=== PATIENT | male | born 1970 | race Caucasian/White ===

== ENCOUNTER 2017-06-25 07:05 | Day surgery (SDC) | payer OTHER ==
[~2017-06-25] VITALS: Ht 162.6 cm; Wt 97.5 kg
[~2017-06-25 07:05] MED LIST: PRILOSEC OTC20 MG PO
--- NOTE | 2017-06-25 08:53 | NUR ---
PT SEEMS ALERT AND ORINETED. HE MENTIONED THAT HE HAD RECEIVED A LOT OF INFO. HE SEEMED PLEASED WITH CARE HE HAS RECEIVED. I ENCOURAGED HIM TO FOLLOW 'S INSTRUCTIONS FOR RECOVERY-WONDERING ABOUT RETURNING TO WORK. PT REQUESTED PRAYER, WILL FOLLOW NEEDED
--- NOTE | 2017-06-25 10:28 | NUR ---
06/25/17 Dedra8 Tammi Palmer 1023-PATIENT ARRIVED TO PACU ON 6L MASK O2 SAT 99% PATIENT NONAROUSABLE. RN HOLDING AIRWAY. INCISION CDI ICE APPLIED. SR. 1025-PATIENT AROUSING TO VERBAL STIMULI EYES CLOSED. RR EVEN. DOZES BACK TO SLEEP.
[2017-06-25] MEDS ORDERED: NORCO 5-325 TA1 EACH PO (11:18)
--- NOTE | 2017-06-25 12:38 | NUR ---
1230 HERE TO GET PT. HAS EATEN CRACKERS JELLO AND DRANK APPLE JUICE. DENIES NEED TO URINATE. HAVE REVIEWED DC INSTRUCTIONS SEVERAL TIMES. SAYS HE UNDERSTANDS.
--- NOTE | 2017-06-26 14:16 | OR ---
[facility] [address], [place] [address] Signed DATE OF OPERATION: 06/15/17 SURGEON: Casi Tena MD PREOPERATIVE DIAGNOSIS: Incarcerated umbilical hernia (12 mm). POSTOPERATIVE DIAGNOSIS: Incarcerated umbilical hernia (12 mm). PROCEDURE: Umbilical herniorrhaphy with intraabdominal Ventralex mesh (6.4 cm). ESTIMATED BLOOD LOSS: None. 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 Several weeks ago he was playing with his children and felt pain and swelling at his umbilicus. He had been to his primary care provider. He has an incarcerated moderate-sized umbilical hernia. An ultrasound was ordered and he has a fascial defect around 11 mm with some intestine behind it. The herniated fat was about 30 mm in diameter, which is common. As a result, he was asked to see me as a general surgeon. He said the pain runs around 6 to 7/10, worse when he is lifting or active. I gave him a booklet on hernias and we looked at that together in detail. He understands the nature of an umbilical hernia along with a difference between the primary suture repair and a mesh repair. He also understands, expected intraoperative and postoperative course. The risks of surgery including, but not limited to bleeding, infection, scarring, change in contour of the skin, damage to bowel, infection of mesh requiring removal, recurrent hernias and chronic pain. He has expressed understanding and would like to proceed. PROCEDURE NOTE: Marco was taken into the operating room and placed in the supine position under general endotracheal tube anesthesia. He had shaved around his umbilicus 4 days prior to the procedure. He was given preoperative antibiotics along with subcutaneous heparin. SCDs were utilized. He was then prepped and draped in the usual sterile fashion. A standard infraumbilical transverse incision was made and carried down around the umbilicus bluntly and with the cautery. The hernia was from the fascial defect with the help of cautery. The herniated fat was amputated and passed off the Electronically Signed By: CASI TENA MD 06/26/17 0805 Electronically Signed By: CASI TENA MD 06/27/17 0829 PATIENT NAME: MARCO MATHEWS OPERATIVE REPORT DATE OF : 66 REPORT #: [id number] PHYSICIAN: CASI TENA MD PCP: COTY HOBSON REPORT IS CONFIDENTIAL AND NOT TO BE RELEASED WITHOUT AUTHORIZATION [facility] [address], [place] [address] Signed field. The fascial defect was about 12 mm. Consequently, we chose our 6.4 cm round Ventralex mesh. We placed it inside the abdominal cavity and brought it up flush against posterior abdominal wall. We then closed the fascial defect transversely with a running #1 Prolene suture. Several passes of the suture went through the tab on the mesh to help hold it in place. The tab was cut flush with the fascia. The wound was then infiltrated with local anesthetic. The wound was irrigated and suctioned out until clear. The umbilical skin was held down to the midline fascia with an interrupted 2-0 PDS suture. The skin and dermis were then reapproximated with interrupted 3-0 subcuticular Monocryl sutures. Dry gauze and tape were then applied. Marco was then awakened from his anesthesia, extubated in the OR, and taken to recovery room in stable condition. Casi Tena MD ALB/MODL /[id number] cc: GUILHERME Voss Copies: COTY HOBSON ~ Electronically Signed By: CASI TENA MD 06/26/17 0805 Electronically Signed By: CASI TENA MD 06/27/17 0829 PATIENT NAME: MARCO MATHEWS OPERATIVE REPORT DATE OF : 66 REPORT #: [id number] PHYSICIAN: CASI TENA MD PCP: COTY HOBSON REPORT IS CONFIDENTIAL AND NOT TO BE RELEASED WITHOUT AUTHORIZATION
== END 2017-06-25 12:30 | disposition home or self-care (01) ==
LOC: DS 07:05
PROVIDERS: Colon & Rectal Surgery
PROC: 0WUF0JZ Supplement Abdominal Wall with Synthetic Substitute, Open Approach (ICD-10-PCS; principal; 2017-06-25 08:45)
DX: K42.0 Umbilical hernia with obstruction, without gangrene (principal); K21.9 Gastro-esophageal reflux disease without esophagitis; F17.220 Nicotine dependence, chewing tobacco, uncomplicated; F41.9 Anxiety disorder, unspecified; Z79.899 Other long term (current) drug therapy
CPT/HCPCS: 00750; C1781; J0330; J0690; J1100; J1644; J1885; J2250; J2405; J2704; J3010; J7120

== ENCOUNTER 2017-07-28 17:04 | Emergency (ER) | payer OTHER ==
[~2017-07-28] VITALS: Ht 162.6 cm; Wt 97.5 kg
[~2017-07-28 17:04] MED LIST changes: +NORCO 5-325 TA1 EACH PO
== END 2017-07-28 17:25 | disposition home or self-care (01) ==
LOC: ED 17:04
DX: S61.216A Laceration without foreign body of right little finger without damage to nail, initial encounter (principal); W23.0XXA Caught, crushed, jammed, or pinched between moving objects, initial encounter